=== PATIENT | male | born 1940 | race Caucasian/White ===

== ENCOUNTER 2022-11-12 03:00 | Emergency (ER) | payer MEDICARE, OTHER, SELFPAY ==
--- NOTE | 2022-11-12 | ECG_ITS ---
Test Reason : CP Blood Pressure : / mmHG Vent. Rate : 072 BPM Atrial Rate : 072 BPM P-R Int : 230 ms QRS Dur : 086 ms QT Int : 364 ms P-R-T Axes : 011 037 014 degrees QTc Int : 398 ms Sinus rhythm with 1st degree A-V block Otherwise normal ECG No previous ECGs available Referred By: Generic ED Physician Electronically Signed By:ALEJANDRINA CASTELAN
--- NOTE | ~2022-11-12 | XR_ITS ---
EXAMINATION: XR CHEST CLINICAL INFORMATION: Right chest pain COMPARISON: 05/04/2011 TECHNIQUE: Frontal view of the chest was obtained. FINDINGS: Normal symmetric lung volumes. No parenchymal consolidation. Chronic linear opacity at left lung base likely pleural-parenchymal scarring. No pleural effusion. No pneumothorax. Cardiomediastinal silhouette and pulmonary vascularity are within normal limits. No acute osseous abnormalities. XR/XR chest 1V IMPRESSION: No acute findings
[2022-11-12 03:01] VITALS: BP 128/71; PULSE 88; RESP 16; TEMP 36.8; O2SAT 93; BMI 29.2
[2022-11-12 03:29] LABS: Basophils Absolute Auto 0.1 X10*3/uL (0.0-0.2); Basophils Percent Auto 0.5 % (0-2); Eosinophils Absolute Auto 0.4 X10*3/uL (0.0-0.4); Eosinophils Percent Auto 4.2 % (0-4); Hematocrit 43.9 % (42.0-52.0); Hemoglobin 15.3 g/dl (14.0-18.0); Imm Gran Abs Auto 0.04 X10*3/uL (0.00-0.03); Imm Gran Pct Auto 0.4 % (0.0-0.4); Lymphocytes Absolute Auto 1.8 X10*3/uL (1.2-4.9); Lymphocytes Percent Auto 19.2 % (20-40); MANUAL DIFF FLAG NO; Mean Corpuscular HGB Conc 34.9 g/dl (31.0-36.0); Mean Corpuscular Volume 86.1 fL (80.0-98.0); Mean Platelet Volume 9.6 fL (9.4-12.4); Monocytes Absolute Auto 1.2 X10*3/uL (0.1-1.2); Neutrophils Absolute Auto 5.8 x10*3/uL (2.0-8.3); Neutrophils Percent Auto 62.7 % (45-73); Platelet Count 188 X10*3/uL (160-400); White Blood Count 9.2 X10*3/uL (4.8-10.8)
[2022-11-12 03:42] LABS: Alanine Aminotransferase 25 U/L (0-40); Albumin Level 3.8 g/dL (3.5-5.0); Alkaline Phosphatase 119 U/L (39-117); Anion Gap 19 (12-20); Aspartate Amino Transferase 26 U/L (5-37); Bilirubin Total 0.3 mg/dL (0.0-1.0); Blood Urea Nitrogen 14 mg/dL (9-16); Calcium 9.2 mg/dL (8.4-10.2); Carbon Dioxide 19 mmol/L (22-29); Chloride 107 mmol/L (96-108); Creatinine Clr Calc Pharmacy 72.6; Estimated Glomerular Filt Rate > 60; Glucose Random 105 mg/dL (60-115); Sodium 141 mmol/L (135-145); Total Protein 6.7 g/dL (6.5-8.0)
--- OUTSIDE RECORDS SUMMARY | 2022-11-12 03:43 | XMS_ITS | Continuity of Care Document ---
Author Name Unknown Organization [facility] Address [address] [place] [address] [address] [place] [address]- Care Team Providers Care Pest Control Service Representative Name Role Phone Nikkie Mena Primary Care Physician [place] [facility] [place] 11/13/21 - 11/20/21 [facility] [address] [place] [address]- Attending Physician: Miky Ozuna MD Referring Physician: Nikkie Mena Allergies, Adverse Reactions, Alerts Substance Reaction Severity Status Avelox Active Medications ibuprofen 200 mg oral capsule 1 capsule = 200 mg, By Mouth, Every 6 hours, 0 Refills, Maintenance, 01/25/21 15:49:00 EDT, Partialfill upon patient request if the prescription is for a schedule II opioid drug. Start Date: 01/25/21 Status: Ordered leflunomide 20 mg oral tablet 1 tablet = 20 mg, By Mouth, Daily, # 30 tablet, 0 Refills, Maintenance, 04/19/15 14:33:11, Tablet Start Date: 04/19/15 Status: Ordered oxyCODONE 5 mg oral tablet 5 mg, 1, tablet, By Mouth, Every 6 hours, PRN, # 7 tablet, Refills 0, Tot. Refills 0, Maintenance, for pain, 01/30/21 16:15:00 EDT, Route to Pharmacy Electronically, [facility], Partial fill upon patient request if the prescription is... Start Date: 01/30/21 Status: Ordered propranolol 20 mg oral tablet 1 tablet = 20 mg, By Mouth, 2 times a day, # 60 tablet, 11 Refills, Maintenance, 04/19/15 14:58:17,Tablet, 1 tablet By Mouth 2 times a day,x30 days Start Date: 04/19/15 Stop Date: 04/13/16 Status: Ordered Vitamin D3 By Mouth, 0 Refills, Maintenance, 04/19/15 14:35:13 Start Date: 04/19/15 Status: Ordered Vital Signs Most recent to oldest [Reference Range]: 1 Height 176 cm (11/13/21 2:13 PM) Social History Social History Type Response Smoking Status Never smoker entered on: 04/19/15 Sex
--- OUTSIDE RECORDS SUMMARY | 2022-11-12 03:43 | XMS_ITS | Continuity of Care Document ---
Author Name Unknown Organization [facility] Address [address] [place] [address] [address] [place] [address]- Care Team Providers Care Benefits Processor Name Role Phone Nikkie Mena Primary Care Physician Encounter [facility] [place] Date(s): 01/24/21 - 02/23/21 [facility] [address] [place] [address]- Allergies, Adverse Reactions, Alerts Substance Reaction Severity Status NKA Active Medications ibuprofen 200 mg oral capsule [...] 01/30/21 16:15:00 EDT, Route to Pharmacy Electronically, [facility], Partial fill upon patient [...] 04/19/15 14:35:13 Start Date: 04/19/15 Status: Ordered Social History Social History Type Response Smoking Status Never smoker entered on: 04/19/15 Sex
--- OUTSIDE RECORDS SUMMARY | 2022-11-12 03:43 | XMS_ITS | Continuity of Care Document ---
Author Name Unknown Organization [facility] Address [address] [place] [address] [facility] [address] [place] [address]- Care Team Providers Care Associate Software Engineer Name Role Phone Nikkie Mena Primary Care Physician Encounter [facility] Date(s): 02/13/22 - 06/13/22 [facility] [address] [place], [place] [address] Attending Physician: Miky Ozuna MD Referring Physician: [...] 01/30/21 16:15:00 EDT, Route to Pharmacy Electronically, [facility], Partial fill upon patient [...] Status Never smoker entered on: 04/19/15 Sex Patient Care team information Care Team Personnel Name: Nikkie Mena Position: Reference Physician Member Role: PCP Address: Address: [address] [place] [address]- Care Team Related Persons Name: APRIL FERNANDO Address: home [address] [place] [address]
--- OUTSIDE RECORDS SUMMARY | 2022-11-12 03:43 | XMS_ITS | Continuity of Care Document ---
Author Name Unknown Organization [facility] Address [address] [place] [address] [address] [place] [address]- Care Team Providers Care Costume Design Teacher Name Role Phone Nikkie Mena Primary Care Physician Encounter [facility] [place] Date(s): 12/26/20 - 01/02/21 [facility] [address] [place], [place] [address] Attending Physician: Miky Ozuna MD Allergies, Adverse Reactions, Alerts Substance Reaction Severity Status NKA Active Medications leflunomide 20 mg oral tablet 1 tablet = 20 mg, By Mouth, Daily, # 30 tablet, 0 Refills, Maintenance, 04/19/15 14:33:11, Tablet Start Date: 04/19/15 Status: Ordered propranolol 20 mg oral tablet [...]
--- OUTSIDE RECORDS SUMMARY | 2022-11-12 03:43 | XMS_ITS | Continuity of Care Document ---
Author Name Unknown Organization [facility] Address [address] [place] [address] [address] [place] [address]- Care Team Providers Care Head Chef Name Role Phone Nikkie Mena Primary Care Physician [place] [facility] [id number] Date(s): 05/08/21 - 05/15/21 [facility] [address] [place] [address]- Attending Physician: Miky Ozuna MD Allergies, Adverse Reactions, Alerts No Known Allergies Medications ibuprofen 200 mg oral capsule 1 [...] 01/30/21 16:15:00 EDT, Route to Pharmacy Electronically, [facility], Partial fill upon patient request [...]
--- OUTSIDE RECORDS SUMMARY | 2022-11-12 03:43 | XMS_ITS | Continuity of Care Document ---
Author Name Unknown Organization [facility] [place] Address [address] [place] [address] [facility] [address] [place] [address]- Care Team Providers Care Lead Technician Name Role Phone Nikkie Mena Primary Care Physician Encounter [facility] [place] Date(s): 05/14/22 - 06/13/22 [facility] [address] [place], [place] [address] Attending Physician: Brad Roque Admitting Physician: Brad Roque Referring Physician: Brad Roque Referring Physician: Lalitha Pastor RN Allergies, Adverse Reactions, Alerts Substance Reaction Severity [...] 01/30/21 16:15:00 EDT, Route to Pharmacy Electronically, [facility], Partial fill upon patient request [...] Reference Physician Member Role: PCP Address: Address: [address] [place] [address]- Care Team Related Persons Name: APRIL FERNANDO Address: home [address] [place] [address]
--- OUTSIDE RECORDS SUMMARY | 2022-11-12 03:43 | XMS_ITS | Continuity of Care Document ---
Author Name Unknown Organization [facility] Address [address] [place] [address] [address] [place] [address]- Care Team Providers Care Fluorescent Lighting Model Maker Name Role Phone Nikkie Mena Primary Care Physician En[place] [facility] [place] Date(s): 01/18/21 - 02/17/21 [facility] [address] [place], [place] [address] Allergies, Adverse Reactions, Alerts Substance Reaction Severity [...] 01/30/21 16:15:00 EDT, Route to Pharmacy Electronically, [facility], Partial fill upon patient [...]
--- OUTSIDE RECORDS SUMMARY | 2022-11-12 03:43 | XMS_ITS | Continuity of Care Document ---
Author Name Unknown Organization [facility] Address [address] [place] [address] [address] [place] [address]- Care Team Providers Care Rotary Drill Operator Name Role Phone Nikkie Mena Primary Care Physician Encounter [facility] [place] ACCT R [id number] Date(s): 02/27/21 - 03/06/21 [facility] [address] [place] [address]- Attending Physician: Miky Ozuna MD Referring Physician: [...] 01/30/21 16:15:00 EDT, Route to Pharmacy Electronically, [facility], Partial fill upon patient [...]
--- OUTSIDE RECORDS SUMMARY | 2022-11-12 03:43 | XMS_ITS | Continuity of Care Document ---
Author Name Unknown Organization [facility] Address [address] [place] [address] [address] [place] [address]- Care Team Providers Care Geospatial Applications Developer Name Role Phone Nikkie Mena Primary Care Physician Encounter [facility] [place] Date(s): 02/09/21 - 02/16/21 [facility] [address] [place] [address]- Attending Physician: Miky Ozuna MD Referring Physician: [...] 01/30/21 16:15:00 EDT, Route to Pharmacy Electronically, [facility], Partial fill upon patient [...] recent to oldest [Reference Range]: 1 Height 17 cm (02/09/21 11:01 AM) Weight 83 kg (02/09/21 11:01 AM) Temperature [96.8-100.4 DegF] 98.2 DegF (02/09/21 11:01 AM) Social History Social History Type Response Smoking Status Never smoker entered on: 04/19/15 Sex
--- OUTSIDE RECORDS SUMMARY | 2022-11-12 03:43 | XMS_ITS | Continuity of Care Document ---
Author Name Unknown Organization [facility] Address [address] [place] [address] [address] [place] [address]- Care Team Providers Care Application Development Liaison Name Role Phone Nikkie Mena Primary Care Physician En[place] [facility] [place] Date(s): 09/12/20 - 10/12/20 [facility] [address] [place], [place] [address] Attending Physician: Admtr, Ar8 Admitting Physician: Admtr, Ar8 Referring Physician: Admtr, Ar8 Allergies, Adverse Reactions, Alerts Substance Reaction Severity [...]
--- OUTSIDE RECORDS SUMMARY | 2022-11-12 03:43 | XMS_ITS | Continuity of Care Document ---
Author Name Unknown Organization [facility] [place] Address [address] [place] [address] [address] [place] [address]- Care Team Providers Care Picker Tender Name Role Phone Nikkie Mena Primary Care Physician En[place] [facility] [place] R [id number] Date(s): 10/18/20 - 02/15/21 [facility] [address] [place] [address]- Attending Physician: Miky Ozuna MD Allergies, Adverse [...] 01/30/21 16:15:00 EDT, Route to Pharmacy Electronically, [facility], Partial fill upon [...]
--- OUTSIDE RECORDS SUMMARY | 2022-11-12 03:43 | XMS_ITS | Continuity of Care Document ---
Author Name Unknown Organization [facility] Address [address] [place] [address] [address] [place] [address]- Care Team Providers Care Environmental Sustainability Manager Name Role Phone Nikkie Mena Primary Care Physician Encounter [facility] [place] Date(s): 02/09/21 - 03/11/21 [facility] [address] [place], [place] [address] Attending Physician: Brad Roqeu Admitting Physician: Admtr, Ar8 Referring Physician: Admtr, [...] 01/30/21 16:15:00 EDT, Route to Pharmacy Electronically, [facility], Partial fill upon patient [...]
--- OUTSIDE RECORDS SUMMARY | 2022-11-12 03:43 | XMS_ITS | Continuity of Care Document ---
Author Name Unknown Organization [facility] Address [address] [place] [address] [address] [place] [address]- Care Team Providers Care Motors And Controls Tester Name Role Phone Nikkie Mena Primary Care Physician Encounter [facility] [place] Date(s): 09/12/20 - 09/19/20 [facility] [address] [place], [place] [address] Attending Physician: Miky Ozuna MD Referring [...]
[2022-11-12 03:48] VITALS: PULSE 68
--- NOTE | 2022-11-12 04:56 | ED.CHESTPAIN ---
HPI - Chest Pain General Chief Complaint: Chest Pain Stated Complaint: Chest pain Time Seen by Provider: 11/12/22 04:46 Source: patient and family Mode of arrival: ambulatory Limitations: no limitations History of Present Illness HPI narrative: Patient comes to the emergency room accompanied by his . Patient states that for about 15 hours, he has been having right-sided chest pain with deep inspirations. Patient states it reproducible with deep inhalations. When patient is being normal, patient has no pain at all. At this time, patient feels very comfortable, states that even with deep inspirations, it does not hurt as much as it hurt before arrived to the emergency room. Patient denies any recent URIs, denies abdominal pain. No cardiac history. Related Data Allergies Allergy/AdvReac Type Severity Reaction Status Date / Time No Known Allergies Allergy Unverified 12/30/19 16:15 Review of Systems Review of Systems: Constitutional : No Weight loss, No Fever, No Chills, No Night Sweats, No Fatigue, No Malaise ENT/Mouth : No Hearing loss, No Ear Pain, No Nasal Congestion, No Sinus Pain, No Hoarseness, No sore throat, No Rhinorrhea, No Swallowing Difficulty Eyes: No Eye Pain, No Swelling, No Redness, No Foreign Body, No Discharge, No Vision Changes Cardiovascular : Complaining of chest pains with inhalation, no dyspnea, no palpitations Respiratory : No Cough, No Sputum, No Wheezing, No Smoke Exposure, No Dyspnea Gastrointestinal : No Nausea, No Vomiting, No Diarrhea, No Constipation, No abdominal Pain, No Hematochezia, No Melena Genitourinary : no irregular bleeding, No Dysuria, No Urinary Frequency, No Hematuria, No Urinary Incontinence, No Urgency, No Flank Pain, No Urinary Flow Changes, No Hesitancy Musculoskeletal : No joint pain, No Myalgias, No Joint Swelling Skin : No Skin Lesions, No rash Neuro : No Weakness, No Numbness, No Paresthesias, No Loss of Consciousness, No Dizziness, No Headache Psych : No Anxiety/Panic, No Depression, No SI/HI/AH/VH, No Social Issues, Heme/Lymph: No Bruising, No Bleeding,No Lymphadenopathy Endocrine : No Polyuria, No Polydipsia, No Temperature Intolerance PMF Social History Social History Alcohol intake: never Smoked in Last 30 Days: No Use of substances other than those prescribed or required for medical reasons: No Advance Directives: No Advance Directives Information Provided: Yes Physical Exam Vital Signs: Vital Signs: Last Vital Signs Temp 98.3 F 11/12/22 05:44 Pulse 69 11/12/22 05:44 Resp 24 H 11/12/22 05:44 BP 114/60 11/12/22 05:44 Pulse Ox 92 11/12/22 05:44 O2 Del Method Room Air 11/12/22 05:44 BMI result Body Mass Index 29.2 Const: Other: Appearance: Alert. Oriented X3. No acute distress. Eyes: Pupils equal, round and reactive to light. ENT: Pharynx normal. Neck: Normal inspection. Neck supple. No lymph nodes noted. No crepitus CVS: Normal heart rate and rhythm. Pulses normal. Normal S1 and S2 Respiratory: No respiratory distress. Breath sounds normal. No Wheezing. No rales Abdomen: Soft and nontender. No rigidity. No distention. Skin: Skin warm and dry. Normal skin color. Normal skin turgor. Extremities: No lower extremity edema. No Lacerations. No Rash Neuro: Oriented X 3. No motor deficit. No sensory deficit. Moving all extremities. No slurred speech. CN 2 through 12 grossly intact Psych: calm, cooperative, normal affect Course Course Course Narrative: - Medical Decision Making Medical Decision Making MDM Narrative: -patient's age and symptoms, this was all concerning for ACS, admission was considered -my interpretation of EKG: Sinus rhythm, first-degree AV block, heart rate 72, no ST segment depression or elevation, no T-wave inversion, QTC 398 -troponin 1. [place] -troponin over 2 pending -patient's troponin 2. Is negative as well, flat troponins, patient asymptomatic Differential Diagnosis Differential Diagnoses: The differential diagnosis associated with the presentation includes (ACS, costochondritis, pleurisy) Admission/Observation Consideration of admission/observation: Escalation of care including admission/observation considered Lab Data [facility] Lab Attestation statement: I reviewed the patient's lab results. 11/12/22 03:24 11/12/22 03:24 Labs: Lab Results 11/12/22 11/12/22 11/12/22 Range/Units 03:24 03:24 03:24 WBC 9.2 (4.8-10.8) X10*3/uL RBC 5.10 (4.60-5.80) X10*6/uL Hgb 15.3 (14.0-18.0) g/dl Hct 43.9 (42.0-52.0) % MCV 86.1 (80.0-98.0) fL MCH 30.0 (27.0-33.0) pg MCHC 34.9 (31.0-36.0) g/dl RDW 16.0 (11.0-16.0) % Plt Count 188 (160-400) X10*3/uL MPV 9.6 (9.4-12.4) fL Immature Gran % (Auto) 0.4 (0.0-0.4) % Neut % (Auto) 62.7 (45-73) % Lymph % (Auto) 19.2 L (20-40) % [place] % (Auto) 13.0 H (2-11) % Eos % (Auto) 4.2 H (0-4) % Baso % (Auto) 0.5 (0-2) % Lymph # (Auto) 1.8 (1.2-4.9) X10*3/uL [place] # (Auto) 1.2 (0.1-1.2) X10*3/uL Eos # (Auto) 0.4 (0.0-0.4) X10*3/uL Baso # (Auto) 0.1 (0.0-0.2) X10*3/uL Abs Immat Gran (auto) 0.04 H (0.00-0.03) X10*3/uL Absolute Neuts (auto) 5.8 (2.0-8.3) x10*3/uL Absolute Nucleated RBC 0.000 (0.0-0.012) X10*3/uL Nucleated RBC % (auto) 0.0 (0.0-0.2) /100WBC Sodium 141 (135-145) mmol/L Potassium 4.0 (3.3-5.1) mmol/L Chloride 107 (96-108) mmol/L Carbon Dioxide 19 L (22-29) mmol/L Anion Gap 19 (12-20) BUN 14 (9-16) mg/dL Creatinine 0.87 (0.5-1.4) mg/dL Estim Creat Clear Calc 72.6 Estimated GFR > 60 Random Glucose 105 (60-115) mg/dL Calcium 9.2 (8.4-10.2) mg/dL Total Bilirubin 0.3 (0.0-1.0) mg/dL AST 26 (5-37) U/L ALT 25 (0-40) U/L Alkaline Phosphatase 119 H (39-117) U/L Troponin I High Sens 8.0 (<3.5-35.0) ng/L Total Protein 6.7 (6.5-8.0) g/dL Albumin 3.8 (3.5-5.0) g/dL 11/12/22 Range/Units 05:54 WBC (4.8-10.8) X10*3/uL RBC (4.60-5.80) X10*6/uL Hgb (14.0-18.0) g/dl Hct (42.0-52.0) % MCV (80.0-98.0) fL MCH (27.0-33.0) pg MCHC (31.0-36.0) g/dl RDW (11.0-16.0) % Plt Count (160-400) X10*3/uL MPV (9.4-12.4) fL Immature Gran % (Auto) (0.0-0.4) % Neut % (Auto) (45-73) % Lymph % (Auto) (20-40) % [place] % (Auto) (2-11) % Eos % (Auto) (0-4) % Baso % (Auto) (0-2) % Lymph # (Auto) (1.2-4.9) X10*3/uL [place] # (Auto) (0.1-1.2) X10*3/uL Eos # (Auto) (0.0-0.4) X10*3/uL Baso # (Auto) (0.0-0.2) X10*3/uL Abs Immat Gran (auto) (0.00-0.03) X10*3/uL Absolute Neuts (auto) (2.0-8.3) x10*3/uL Absolute Nucleated RBC (0.0-0.012) X10*3/uL Nucleated RBC % (auto) (0.0-0.2) /100WBC Sodium (135-145) mmol/L Potassium (3.3-5.1) mmol/L Chloride (96-108) mmol/L Carbon Dioxide (22-29) mmol/L Anion Gap (12-20) BUN (9-16) mg/dL Creatinine (0.5-1.4) mg/dL Estim Creat Clear Calc Estimated GFR Random Glucose (60-115) mg/dL Calcium (8.4-10.2) mg/dL Total Bilirubin (0.0-1.0) mg/dL AST (5-37) U/L ALT (0-40) U/L Alkaline Phosphatase (39-117) U/L Troponin I High Sens 8.3 (<3.5-35.0) ng/L Total Protein (6.5-8.0) g/dL Albumin (3.5-5.0) g/dL Independent Interpretation I performed an independent interpretation of an: EKG and Plain X-Ray (Chest x-ray my interpretation: No pneumonia, no rib fractures) Radiology Impression Discussion of test interpretation with radiology: I have reviewed the radiologist's reading. Radiologist Impression: FINDINGS: Normal symmetric lung volumes. No parenchymal consolidation. Chronic linear opacity at left lung base likely pleural-parenchymal scarring. No pleural effusion. No pneumothorax.? Cardiomediastinal silhouette and pulmonary vascularity are within normal limits. No acute osseous abnormalities. XR/XR chest 1V IMPRESSION: No acute findings ? Independent Historian Clinical information obtained from an independent historian. History obtained from or confirmed by: Spouse Scores Heart Score History: -0- slightly suspicious ECG: -0- normal Age: -2- > or = 65 Risk factory: -0- no risk factors known Troponin: -0- < or = normal limit Score: 2 Risk: 1.7% Critical Care Time Critical Care Time Critical Care Time: Yes Total Critical Care Time: 45 Attestation: I have personally provided critical care time. Time includes review of lab data, radiology results, discussion with consultants, and monitoring for potential decompensation. Intervention performed as documented. Discharge Plan Discharge Clinical Impression: Atypical chest pain Patient Disposition: Home, Self-Care Instructions: Chest Pain (ED) Additional Instructions: Please follow-up with your primary care physician tomorrow. If you have any worsening or new symptoms, please return to the emergency room or call 911
[2022-11-12 05:44] VITALS: BP 114/60; PULSE 69; RESP 24; TEMP 36.8; O2SAT 92
[2022-11-12 06:17] LABS: Troponin-I High Sensitivity 8.3 ng/L (<3.5-35.0)
== END 2022-11-12 06:36 | disposition home or self-care (01) ==
PROVIDERS: Emergency Provider Emergency Medicine; PCP Internal Medicine
DX: R07.89 Other chest pain (principal)
CPT/HCPCS: 36415; 71045; 80053; 84484; 85025; 93005; 99283; 99285

== ENCOUNTER → 2022-11-12 03:12 | Outpatient (BNV) | payer MEDICARE, OTHER, SELFPAY | PROVIDERS: Emergency Provider Emergency Medicine; PCP Internal Medicine; Visit Provider Internal Medicine | DX: I44.0 Atrioventricular block, first degree (principal) | CPT/HCPCS: 93010 ==